=== PATIENT | female | born 1995 | race Caucasian/White ===

== ENCOUNTER 2021-02-17 14:06 | Outpatient (RCR) | payer MEDICAID, SELFPAY | END 2021-05-18 23:59 | disposition home or self-care (01) | LOC: ANHLAB 14:06 | PROVIDERS: Visit Provider Obstetrics & Gynecology | DX: O26.859 Spotting complicating pregnancy, unspecified trimester (principal); Z3A.00 Weeks of gestation of pregnancy not specified | CPT/HCPCS: 36415; 84702; 85461 ==

== ENCOUNTER 2021-02-18 12:39 | Outpatient (CLI) | payer MEDICAID, SELFPAY ==
--- NOTE | ~2021-02-18 | US_ITS ---
EXAMINATION: US OB <= 14 weeks fetus DATE: 02/18/2021 13:11 INDICATION: First trimester spotting. TECHNIQUE: Real-time transabdominal pelvic ultrasound was performed. COMPARISON: None. FINDINGS: The uterus measures 10.4 x 6.6 x 8.1 cm. There is an intrauterine gestational sac. A yolk sac is danitza ntified. The crown rump length measures 2.7 cm, which correlates with an estimated gestational age of 9 weeks and 3 day(s) (+/-) 6 day(s). heart motion is identified measuring 173 beats per minute (bpm) by M-mode Doppler. The right ovary measures 3.2 x 2.7 x 2.5 cm. The left ovary measures 3.7 x 1.9 x 1.8 cm. There is no free fluid in the pelvis. IMPRESSION: 1. Single living intrauterine gestational sac with estimated date of delivery of 09/20/2021. Reviewed, dictated and finalized at location A.
== END 2021-02-18 12:40 | disposition home or self-care (01) ==
PROVIDERS: Visit Provider Obstetrics & Gynecology
DX: O26.851 Spotting complicating pregnancy, first trimester (principal); Z3A.00 Weeks of gestation of pregnancy not specified
CPT/HCPCS: 76801

== ENCOUNTER 2021-05-03 15:01 | Outpatient (CLI) | payer OTHER, SELFPAY ==
--- NOTE | ~2021-05-03 | US_ITS ---
EXAMINATION: US OB /maternal detail DATE: 05/03/2021 16:03 INDICATION: Second trimester anatomic survey TECHNIQUE: Real-time ultrasound of the pelvis was performed. COMPARISON: 02/18/2021 FINDINGS: There is a single living fetus in vertex presentation. The placenta is posterior and 4 cm from the in ternal cervical os. heart rate is 153 beats per minute (bpm). cardiac activity and movement are noted. The amniotic fluid index is subjectively normal. The following anatomy was identified as normal: 4 chamber heart 3 vessel cord cord insertion kidneys urinary bladder stomach spine diaphragm ventricles cisterna magna cerebellum The following biometric data were obtained: Biparietal diameter (BPD): 4.7 cm; head circumference (HC): 17.5 cm; abdominal circumference (AC): 15 .1 cm; femur length (FL): 3.1 cm. These measurements are concordant. Estimated weight is 334 g +/- 50 g, which correlates with the 53rd percentile when 09/20/2021 is used as estimated date of delivery. As single measurements, these parameters are each equal to the following estimated gestational ages w ith ranges of +/- 2 standard deviations: BPD: 20 weeks 2 days +/- 1 weeks 5 days. HC: 20 weeks 1 days +/- 1 weeks 3 days. AC: 20 weeks 3 days +/- 2 weeks 0 days. FL: 19 weeks 6 days +/- 1 weeks 6 days. estimated gestational age based solely on measurements from this exam is 20 weeks 1 days +/- 1 weeks 3 days. IMPRESSION: 1. Single living fetus in vertex presentation. 2. Estimated weight is 334 g +/- 50 g, which correlates with the 53rd percentile when 09/20/2021 is used as estimated date of delivery. Reviewed, dictated and finalized at location A. IMPRESSION: 1. Single living fetus in vertex presentation. 2. Estimated weight is 334 g +/- 50 g, which correlates with the 53rd per centile when 09/20/2021 is used as estimated date of delivery.
== END 2021-05-03 15:02 | disposition home or self-care (01) ==
LOC: ANHIMG 15:09
PROVIDERS: PCP Obstetrics & Gynecology; Visit Provider Nurse Practitioner
DX: Z34.92 Encounter for supervision of normal pregnancy, unspecified, second trimester (principal); Z3A.20 20 weeks gestation of pregnancy
CPT/HCPCS: 76805

== ENCOUNTER 2021-07-20 15:25 | Outpatient (CLI) | payer OTHER, SELFPAY ==
--- NOTE | ~2021-07-20 | US_ITS ---
EXAMINATION: US OB follow up DATE: 07/20/2021 15:53 INDICATION: Gestational size greater than dates. TECHNIQUE: Real-time transabdominal obstetric ultrasound. FINDINGS: Comparison to multiple prior studies sequentially, with oldest reviewed study dated 021. There is a single living fetus in vertex presentation. The placenta is posterior without placenta pr evia. cardiac activity and movement is noted with a heart rate of 173 beats per minute. T he amniotic fluid volume is normal. CARRI measures 14.3 cm. The following biometric data were obtained: BPD: 81mm corresponds to gestational age 32 weeks 5 days. Head circumference: 296mm corresponds to gestational age 32 weeks 5 days. Abdominal circumference: 274mm corresponds to gestational age 31 weeks 3 days. Femur length: 60mm corresponds to gestational age 31 weeks 0 days. Estimated weight: 1792grams +/- 269grams, 37.8%.] IMPRESSION: 1. Single living intrauterine in vertex presentation with an estimated gestational age of 31 weeks 1 days by inititial ultrasound. Appropriate interval growth. 2. Normal placenta. Reviewed, dictated and finalized at location A. ANCE SECRETARY IMPRESSION: 1. Single living intrauterine in vertex presentation with an estimat ed gestational age of 31 weeks 1 days by inititial ultrasound. Appropriate int erval growth. 2. Normal placenta.
== END 2021-07-20 15:26 | disposition home or self-care (01) ==
LOC: ANHIMG 15:27
PROVIDERS: PCP Obstetrics & Gynecology; Visit Provider Obstetrics & Gynecology
DX: O36.63X3 Maternal care for excessive fetal growth, third trimester, fetus 3 (principal); Z3A.32 32 weeks gestation of pregnancy
CPT/HCPCS: 76816

== ENCOUNTER 2021-09-18 18:29 | Inpatient (IN) | payer OTHER, SELFPAY ==
[2021-09-18] VITALS (11 sets, daily range): BP systolic 99–122; BP diastolic 52–74; PULSE 77–92; RESP 16; TEMP 36.6–36.8; BMI 40.7
[2021-09-18] MEDS: DINOPROSTONE 10 MG VAG INSERT VAGINAL (19:28)
[2021-09-18 19:54] LABS: Basophils Percent Auto 0.2 % (0.2-1.2); Eosinophils Absolute Auto 0.1 K/mm3 (0-0.3); Eosinophils Percent Auto 0.7 % (0-4.4); Hematocrit 33.7 % (37.0-47.0); Hemoglobin 11.4 g/dL (12.0-15.0); Immature Granulocyte Absolute 0.09 K/mm3 (0.00-0.031); Immature Granulocyte Percent A 0.7 % (0-0.5); Lymphocytes Absolute Auto 1.28 K/mm3 (0.9-3.2); Lymphocytes Percent Auto 10.2 % (18.3-44.2); Mean Corpuscular HGB Conc 33.8 g/dl (32-36); Mean Corpuscular Hemoglobin 31.1 pg (26-34); Mean Corpuscular Volume 91.8 fl (80-100); Mean Platelet Volume 10.3 fl (7.4-10.4); Monocytes Absolute Auto 0.8 K/mm3 (0.1-0.6); Monocytes Percent Auto 6.6 % (2.6-8.5); Neutrophils Absolute Auto 10.2 K/mm3 (1.3-6.7); Neutrophils Percent Auto 81.6 % (45.5-73.1); Platelet Count Result 216 k/mm3 (150-375); Red Blood Count 3.67 M/mm3 (4.2-5.4); Red Cell Distribution Width 14.7 % (11.5-14.5); White Blood Count 12.5 K/mm3 (4.5-10.0)
[2021-09-18 20:13] LABS: Amphetamine Screen Urine Negative (Negative); Barbiturate Screen Urine Negative (Negative); Benzodiazepines Screen Urine Negative (Negative); Cannabinoid Screen Urine Positive (Negative); Cocaine Screen Urine Negative (Negative); Methadone Screen Urine Negative (Negative); Opiate Screen Urine Negative (Negative); Phencyclidine Screen Urine Negative (Negative)
[2021-09-19] VITALS (113 sets, daily range): BP systolic 88–128; BP diastolic 50–90; PULSE 72–143; RESP 16; TEMP 36.3–37.2; O2SAT 98–100
[2021-09-19] MEDS: ACETAMINOPHEN 500 MG TABLET 1000 MG PO (00:38)
[2021-09-19] MEDS: DINOPROSTONE 10 MG VAG INSERT VAGINAL (04:30)
[2021-09-19 07:21] LABS: Rapid Plasma Reagin Non-Reactive (NonReactive)
--- NOTE | 2021-09-19 10:56 | WPDOBADMIT ---
Obstetrics - Admit Note Admission Note: record reviewed. No pertinent additions to the history and/or any subsequent changes in the physical findings that are not consistent with the expected course of the were found. Additions to the history and/or subsequent changes in the physical findings follow. Here for MIL at 40 2/7 wks. Had cervadil last pm but patient pulled it shortly after placed and did not tell RN until 430am. Replaced cervadil. Cervix now FT/50/-2 posterior. Continue for full 12 hours of cervadil followed by pitocin. FHTs reactive.
[2021-09-19] MEDS: OXYTOCIN 30 UNITS/NS 500 ML 30 UNITS/500 ML BAG 6 UNITS IV CONT (17:04)
[2021-09-19] MEDS: LACTATED RINGERS 1,000 ML 125 ML IV CONT ×2 (17:04→23:54)
--- NOTE | 2021-09-19 17:10 | PM.OBPNLAB ---
Pain Control Date/time seen: 09/19/21 17:10 Pain control: tolerating well Pelvic Exam Comments: 1-2//-2 midposition; AROM clear fluid Status status: Category l Assessment and Plan Assessment: induction ongoing Plan: continuous present management
[2021-09-19] MEDS: fentaNYL CITRATE INJ (*CRX) 100 MCG/2 ML VIAL 50 MCG IV PUSH ×2 (19:06→21:41)
--- NOTE | 2021-09-19 23:51 | WPDANESEPPF ---
Anes - Initial Pre Proc Eval Procedure: labor epidural Date/Time: 09/19/21 23:51 Surgeon: Chiquita Avila MD Pre Op Diagnosis: labor pain Pre Op Diagnosis: IOL Patient Data Age: 26 Gender: F Height: 1.7 m Weight: 117.93 kg Last Vital Signs Temp 36.4 C 09/19/21 20:30 Pulse 94 09/19/21 23:01 Resp 16 09/19/21 04:30 BP 128/73 09/19/21 23:01 Pulse Ox 100 09/19/21 23:24 Allergies Allergy/AdvReac Type Severity Reaction Status Date / Time No Known Allergies Allergy Verified 08/20/21 12:38 Home Medications Medication Instructions Recorded Confirmed Type ferrous sulfate [Slow Fe] 47.5 mg PO DAILY 08/20/21 08/20/21 History vit no.[id number] 1 tablet DAILY 08/20/21 08/20/21 History [Classic ] pseudoephedrine HCl [Sudafed] 1 mg PRN PRN 08/20/21 08/20/21 History Laboratory Tests 09/18/21 19:22 RPR Non-reactive (NonReactive) Patient hx anesthesia problems: none Family hx anesthesia problems: none Results Review: All pre-operative results and documents have been reviewed as part of the pre-operative evaluation. [facility] Family History Family History (Updated 08/20/21 @ 12:38 by Jasmin Bautista RN) Father Acute myocardial infarction Social History Social History Smoking status: Never smoker Substance use: current Other substance usage details: on occa Last use: unsure Spiritual care concerns: No Anes - Eval Final PreProcedure Day of Procedure 09/19/21 23:51 Patient weight: morbidly obese ASA classification: III Anesthesia type and monitoring: regional epidural Results Review: All pre-operative results and documents have been reviewed as part of the pre-operative evaluation. Informed Consent: The patient's anesthetic plan and its attendant risks and benefits were discussed with the patient/family/POA. Questions were solicited and answers provided to the satisfaction of the patient/family/POA.
[2021-09-20] VITALS (352 sets, daily range): BP systolic 63–139; BP diastolic 29–101; PULSE 66–196; RESP 18; TEMP 36.2–37.7; O2SAT 84–100
[2021-09-20] MEDS: LACTATED RINGERS 1,000 ML 125 ML IV CONT ×2 (01:22→09:00)
[2021-09-20] MEDS: AMPICILLIN 2 GM/NS 100 ML 2 GM/100 ML BAG IVPB (10:29)
[2021-09-20] MEDS: ACETAMINOPHEN 500 MG TABLET 1000 MG PO (10:29)
[2021-09-20] MEDS: SODIUM CHLORIDE 0.9% IV 300 ML 600 ML I-UTERINE (14:00)
[2021-09-20] MEDS: AMPICILLIN 1 GM/NS 50 ML 1 GM/50 ML BAG IVPB (15:13)
[2021-09-20] MEDS: ONDANSETRON INJ 4 MG/2 ML VIAL IV PUSH (16:35)
--- NOTE | 2021-09-20 16:40 | P.PNOB_ITS ---
Pain Control Date/time seen: 09/20/21 16:40 Pain control: epidural Pelvic Exam Comments: -/-2 with 3 cm caput [place] cervix stretchy to 7 Status status: Category ll ( tachycardia) Assessment and Plan Comments: 2 IV restarts due to coming out so Pitocin stopped and restarted several times contractions not adequate low grade maternal temp to 9.8 but tachycardia to 160-170's started IV tylenol and amp and gent
[2021-09-20] MEDS: GENTAMICIN 80MG/SOD CHL 50 ML 80 MG/50 ML BAG 100 MG IVPB (17:13)
--- NOTE | 2021-09-20 22:46 | PM.OBPRVD ---
OB - Delivery Note Procedure Delivery date: 09/20/21 Procedure: Intrapartal Events: Chorioamnionitis Induction method: AROM, Per Pitocin Protocol and Per Cervidil Protocol Delivery monitor: External FHT and Internal Uterine Route of delivery: Laceration Description: Perineal - 2nd Degree Delivery repair: vicryl (3-0) Specimen: Yes (placenta) Quantitative Blood Loss (ml): 150 Anesthesia type: Epidural Disposition: floor Baby Date of : 09/20/21 Weeks of gestation at delivery: 40 Infant gender: Male presentation: vertex position: Right Occiput Anterior Placenta delivery description: Spontaneous Cord Vessel Description: 3 Vessels and Nuchal Cord score one minute: 9 score five minutes: 9
--- NOTE | 2021-09-20 22:47 | PM.OBDSVD ---
DS: Admitting Diagnosis Discharge Date 09/22/21 Admitting Diagnosis IUP 40 2/7 wks for MIL DS: Discharge Diagnosis Discharge Diagnosis (1) (normal spontaneous vaginal delivery): Code(s): O80 - Encounter for full-term uncomplicated delivery Status: Acute (2) Chorioamnionitis: Code(s): O41.1290 - Chorioamnionitis, unspecified trimester, not applicable or unspecified Status: Acute OB - DS: Summary OB Procedures : Ultrasound OB Procedures Intrapartum: Spontaneous Vag Delivery OB Procedures: : None Peripartum Data Infant Delivery Method: Natural Vaginal Laceration Description: Perineal - 2nd Degree complications: none Status at Discharge Functional status at discharge: independent ambulation Overall status at discharge: patient is progressing back to baseline Time Spent with Patient Time attestation: Total time spent providing and/or coordinating discharge services: Discharge Plan Discharge Attending physician on discharge: Chiquita Avila Discharging Clinician: Chiquita Avila Anticipated Discharge Date/Time: 09/22/21 22:48 Patient Disposition: Home, Self-Care Activity: may shower and pelvic rest Diet: regular Patient Instructions: Antibiotic Form Stand Alone Forms: General Discharge Information Follow-up/Referrals: Chiquita Avila MD [Physician] - 6 Weeks Discharge Medications: New norethindrone (contraceptive) 0.35 mg tablet 0.35 mg PO DAILY Qty: 84 RF: 3 Continued Classic 28 mg iron- 800 mcg Tablet 1 tablet DAILY RF: 0 Discontinued Slow Fe 47.5 mg iron Tablet Extended Release 47.5 mg PO DAILY RF: 0 pseudoephedrine HCl [Sudafed] 30 mg Tablet 1 mg PRN PRN (Reason: Congestion) RF: 0 Date of admission: 09/18/21 18:29 Primary Care Provider: PHYSICIAN,CAMPUS COORDINATOR Admitting Provider: Chiquita Avila Attending physician on admission: Chiquita Avila Condition: Stable
[2021-09-21] VITALS (10 sets, daily range): BP systolic 92–140; BP diastolic 54–89; PULSE 80–108; RESP 16–18; TEMP 36.2–37.4; O2SAT 98–100
[2021-09-21] MEDS: WITCH HAZEL 40 PADS 1 PAD TOPICAL ×2 (00:45→20:34)
[2021-09-21] MEDS: IBUPROFEN 600 MG TABLET PO ×3 (00:45→20:33)
[2021-09-21] MEDS: BENZOCAINE 20% AER SPR (*SP) 56 GM CAN 1 SPRAY TOPICAL ×2 (00:45→20:34)
[2021-09-21 05:01] LABS: Hematocrit 30.6 % (37.0-47.0)
--- NOTE | 2021-09-21 07:39 | PC.NURSE ---
0730 - Introductions were made and mother led the discussion of her desires to feeding her baby. Reviewed handwashing to prevent infection before and after taking care of her baby. Discussed and mother visualized early feeding cues with infant and placed skin to skin, then reviewed feeding baby when infant is ready or every 2-3 hours. Reviewed positioning/alignment with the use of the mom and baby guide. Encouraged mother with to the left breast in football position using nipple to nose with asymmetrical 140-degree latch reviewed with visual handout. She states she has had some nipple discomfort after latching independently. Reviewed there is to be no pain with , how to detach from the breast, visuals to watch for to confirm effective . Reviewed effective latching with resources visual handout/mom and baby guide. Process was interrupted by mother's provider and primary RN to take to get circumcised.
--- NOTE | 2021-09-21 07:46 | PM.OBPNVD ---
OB - PN: Subj Subjective Date/time seen: 09/21/21 07:46 Patient comments: no complaints and pain well controlled baby status: doing well OB - PN: Obj Data Labs CBC & Chem 7: 09/21/21 03:40 Labs: Laboratory Results - last 24 hr 09/21/21 03:40 Hgb 10.0 L Hct 30.6 L OB - PN A/P Plan day: 1 Plan: routine care Time Spent With Patient Time: Total time spent is greater than 50% in coordination of care (as documented) at patient's floor/unit and/or counseling patient: Exam : Bimanual exam- vagina & uterus: other (Uterus firm, nt @U)
--- NOTE | 2021-09-21 08:05 | WPDANLDPN2 ---
Anes-Prog Note L&D Date/Time: 09/21/21 08:05 Comfortable throughout: labor and delivery Neuraxial method: epidural Epidural/Spinal procedure site: clean & non-tender Neuro status: Neuro function grossly intact. Cardiovascular status: normal Respiratory status: normal Airway patency: baseline Mental status: baseline Post-Op hydration status: normal Vital Signs: Last Vital Signs Temp 36.7 C 09/21/21 02:46 Pulse 96 09/21/21 02:46 Resp 16 09/21/21 02:46 BP 111/68 09/21/21 02:46 Pulse Ox 98 09/21/21 02:46 Pain score (VAS): 08/15 I/O: Intake & Output 09/20/21 09/21/21 09/21/21 23:59 07:59 15:59 Intake Total 150 Balance 150 Post-procedural complaints: none Patient feedback: Patient satisfied with anesthetic care.
[2021-09-21] MEDS: MULTIVIT/MIN/PREN/FOL AC/IRON TABLET 1 TAB PO (08:32)
[2021-09-21] MEDS: DOCUSATE SODIUM 100 MG CAPSULE PO (08:32)
--- NOTE | 2021-09-22 07:44 | PM.OBPNVD ---
OB - PN: Subj Subjective Date/time seen: 09/22/21 07:44 Patient comments: no complaints and pain well controlled baby status: doing well OB - PN: Obj Data Labs CBC & Chem 7: 09/21/21 03:40 OB - PN A/P Plan day: 2 Plan: routine care, discharge home, follow up 6 weeks and other (micronor for bc) Time Spent With Patient Time: Total time spent is greater than 50% in coordination of care (as documented) at patient's floor/unit and/or counseling patient: Exam : Bimanual exam- vagina & uterus: other (Uterus firm, nt @U)
[2021-09-22 07:45] VITALS: BP 123/48; PULSE 74; RESP 18; TEMP 36.7; O2SAT 100
[2021-09-22 08:00] VITALS: PULSE 74; RESP 18; O2SAT 100
[2021-09-22] MEDS: IBUPROFEN 600 MG TABLET PO (08:42)
[2021-09-22] MEDS: DOCUSATE SODIUM 100 MG CAPSULE PO ×2 (08:42→08:46)
[2021-09-22] MEDS: MULTIVIT/MIN/PREN/FOL AC/IRON TABLET 1 TAB PO ×2 (08:42→08:46)
--- NOTE | 2021-09-22 09:59 | PCCCNOTE ---
Care Coordination Consult: Met with pt. and NATASHA Brizuela today. This is their first child. They have all necessary supplies at home for baby including a car seat, crib, diapers, bottles, and clothing. They were provided resources. Pt. reports recreational marijuana use sporadically. Baby tested negative for all substances. Pt. is going to breastfeed with supplemental formula feeding, pt. was provided information from RN about and using marijuana. 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 Pt. denies any reliance on marijuana or other substance use. Pt. reports she is discharging today. Denies any other case management needs.
--- NOTE | 2021-09-22 14:17 | PC.NURSE ---
1000-Patient viewed the discharge video Mother & Baby Care, The First Two Weeks . Patient was given the opportunity and encouraged to ask questions. Patient verbalized understanding of information shared and has been given the mother/baby guide for home reference.
[2021-09-23 10:56] VITALS: BP 120/70; PULSE 85; RESP 20; TEMP 36.8; O2SAT 99
== END 2021-09-22 13:40 | disposition home or self-care (01) | DRG 560 ==
LOC: ANHLDR 09-20 22:49 → ANHOB2 09-21 01:47
PROVIDERS: Admitting Provider Obstetrics & Gynecology Gynecology; Visit Provider Obstetrics & Gynecology Gynecology
DX: O42.92 Full-term premature rupture of membranes, unspecified as to length of time between rupture and onset of labor (principal); Z37.0 Single live birth; Z3A.40 40 weeks gestation of pregnancy; O69.81X0 Labor and delivery complicated by cord around neck, without compression, not applicable or unspecified; O70.1 Second degree perineal laceration during delivery; O36.8330 Maternal care for abnormalities of the fetal heart rate or rhythm, third trimester, not applicable or unspecified; O41.1230 Chorioamnionitis, third trimester, not applicable or unspecified
CPT/HCPCS: 36415; 80307; 85014; 85018; 85025; 86592; 86850; 86900; 86901; 88307; A9270; J0131; J0290; J1580; J2405; J2590; J2795; J3010; J7030; J7120

== ENCOUNTER 2023-08-10 15:32 | Outpatient (CLI) | payer OTHER, SELFPAY ==
--- NOTE | ~2023-08-10 | US_ITS ---
EXAMINATION: US OB follow up DATE: 08/10/2023 16:32 INDICATION: Uncertain dates. TECHNIQUE: Real-time ultrasound of the pelvis was performed. COMPARISON: None. FINDINGS: There is a single living fetus in transverse lie. The placenta is anterior. heart rate is 157 beats per minute (bpm). The amniotic fluid volume is subjectively normal. The cervical length is 4.9 cm on transabdominal images, which is normal. The following biometric data were obtained: Biparietal diameter (BPD): 3.6 cm; head circumference (HC): 12.6 cm; abdominal circumference (AC): 11 .4 cm; femur length (FL): 2.3 cm. These measurements are concordant. Estimated weight is 175 g +/- 26 g. As single measurements, these parameters are each equal to the following estimated gestational ages: BPD: 17 weeks 0 days. HC: 16 weeks 3 days. AC: 17 weeks 2 days. FL: 16 weeks 5 days. estimated gestational age based solely on measurements from this exam is 16 weeks 5 days +/- 1 weeks 1 days. IMPRESSION: 1. Single living fetus in transverse lie. 2. Estimated date of delivery of 01/20/2024. Reviewed, dictated and finalized at location E. LECTURER
== END 2023-08-10 15:33 | disposition home or self-care (01) ==
LOC: ANHIMG 15:33
PROVIDERS: Visit Provider Advanced Practice Midwife
DX: Z36.87 Encounter for antenatal screening for uncertain dates (principal); Z3A.16 16 weeks gestation of pregnancy
CPT/HCPCS: 76816

== ENCOUNTER 2023-09-17 09:30 | Outpatient (CLI) | payer OTHER, SELFPAY ==
--- NOTE | ~2023-09-17 | US_ITS ---
EXAMINATION: US OB /maternal detail DATE: 09/17/2023 10:46 INDICATION: anatomic survey. TECHNIQUE: Real-time ultrasound of the pelvis was performed. COMPARISON: Ultrasound 08/10/2023 FINDINGS: There is a single living fetus in breech presentation. The placenta is anterior. heart rate is 153 beats per minute (bpm). The amniotic fluid volume is subjectively normal. The following biometric data were obtained: Biparietal diameter (BPD): 4.9 cm; head circumference (HC): 18.7 cm; abdominal circumference (AC): 16 .2 cm; femur length (FL): 3.8 cm. These measurements are concordant. Estimated weight is 432 g +/- 65 g, which correlates with the 18th percentile when 01/20/24 is u sed as estimated date of delivery. As single measurements, these parameters are each equal to the following estimated gestational ages: BPD: 20 weeks 6 days. HC: 21 weeks 0 days. AC: 21 weeks 2 days. FL: 22 weeks 0 days. estimated gestational age based solely on measurements from this exam is 21 weeks 2 days +/- 1 weeks 3 days. The posterior head is not well visualized. The cerebral ventricles, and visualized portions of the spine are normal. The heart is normal. The diaphragm, stomach, kidneys, and bladder are normal. T here are two umbilical arteries to yield a 3-vessel cord. The cord insertion is normal. IMPRESSION: 1. Single living fetus in breech presentation. 2. Estimated weight is 432 g +/- 65 g, which correlates with the 18th percentile when 01/20/24 is used as estimated date of delivery. 3. Posterior head not well visualized. Otherwise normal anatomic survey. Reviewed, dictated and finalized at location A. CLEANING MACHINE OPERATOR IMPRESSION: 1. Single living fetus in breech presentation. 2. Estimated weight is 432 g +/- 65 g, which correlates with the 18th pe rcentile when 01/20/24 is used as estimated date of delivery. 3. Posterior head not well visualized. Otherwise normal anatomic crowell rvey.
== END 2023-09-17 09:31 | disposition home or self-care (01) ==
PROVIDERS: Visit Provider Advanced Practice Midwife
DX: Z36.9 Encounter for antenatal screening, unspecified (principal); Z3A.21 21 weeks gestation of pregnancy
CPT/HCPCS: 76805

== ENCOUNTER 2023-10-09 15:55 | Outpatient (CLI) | payer OTHER, SELFPAY ==
--- NOTE | ~2023-10-09 | US_ITS ---
EXAMINATION: US OB follow up DATE: 10/09/2023 16:51 INDICATION: Incomplete anatomic survey during second trimester TECHNIQUE: Real-time ultrasound of the pelvis was performed. The interpreting radiologist was not pre sent for the study. COMPARISON: 09/17/2023 FINDINGS: There is a single living fetus in breech presentation. The placenta is anterior/fundal. Fet al cardiac activity and movement are noted. heart rate is 144 beats per minute (bpm). The amniotic fluid index is subjectively normal. The intracranial anatomy appears normal. The following biometric data were obtained: Biparietal diameter (BPD): 5.8 cm; head circumference (HC): 22.8 cm; abdominal circumference (AC): 21 .2 cm; femur length (FL): 4.7 cm. These measurements are concordant. Estimated weight is 824 g +/- 123 g, which correlates with the 52nd percentile when 01/20/2024 i s used as estimated date of delivery. As single measurements, these parameters are each equal to the following estimated gestational ages w ith ranges of +/- 2 standard deviations: BPD: 23 weeks 5 days +/- 1 weeks 3 days. HC: 24 weeks 6 days +/- 2 weeks 0 days. AC: 25 weeks 5 days +/- 2 weeks 1 days. FL: 25 weeks 6 days +/- 2 weeks 1 days. estimated gestational age based solely on measurements from this exam is 25 weeks 0 days +/- 1 weeks 5 days. IMPRESSION: 1. Single living fetus in breech presentation. 2. Estimated weight is 824 g +/- 123 g, which correlates with the 52nd percentile when is used as estimated date of delivery. 3. Normal-appearing intracranial anatomy. Reviewed, dictated and finalized at location B. ING MACHINE ASSEMBLER IMPRESSION: 1. Single living fetus in breech presentation. 2. Estimated weight is 824 g +/- 123 g, which correlates with the 52nd pe rcentile when 01/20/2024 is used as estimated date of delivery. 3. Normal-appearing intracranial anatomy.
== END 2023-10-09 15:56 | disposition home or self-care (01) ==
PROVIDERS: Visit Provider Obstetrics & Gynecology Gynecology
DX: Z36.9 Encounter for antenatal screening, unspecified (principal)
CPT/HCPCS: 76816

== ENCOUNTER 2023-11-08 18:08 | Observation (INO) | payer OTHER, SELFPAY ==
[2023-11-08] VITALS (12 sets, daily range): BP systolic 112–115; BP diastolic 62–63; PULSE 72–80; TEMP 36.9; O2SAT 100; BMI 46.9
--- NOTE | 2023-11-08 18:08 | PC.NURSE ---
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
--- NOTE | 2023-11-08 19:11 | PC.NURSE ---
Called Dr. Avila to update on pt, cramping, vitals, tracing, and no vaginal bleeding. Orders received to discharge pt with instructions to use ice and Tylenol, when to return to the unit, and keep next scheduled appointment.
--- NOTE | 2023-11-08 19:51 | OBADM ---
This patient, Jennifer Hawley, admitted to the OB room OB Post 117 for observation. Patient/family oriented to hospital policies and general routines including ID bracelet, bed and alarms, visiting hours, pain management, procedures, bathroom and other care routines, personal items, smoking policy, room service/diet, and visiting hours. Patient/Family are encouraged to report perceived risks to care and to ask questions if they do not understand what they are told or what they should do.
--- NOTE | 2023-11-08 20:00 | PC.NURSE ---
Pt discharged with instructions to use ice and take Tylenol, when to return to the unit, and to keep next scheduled appointment.
--- NOTE | 2023-11-09 11:53 | PM.OBTRLD ---
OB - Triage/Final Diagnosis Visit Information Reason for evaluation: other ( abdominal cramping) Comments/Additional reasons for admission: I have assessed the risk for this patient, Jennifer Baez Rashidlaurenradhika, and determined that she would benefit from observation care. Evaluation Vital signs: Vital Signs - 24 hr 11/08/23 18:34 11/08/23 18:37 11/08/23 18:42 Temperature Pulse Rate 76 Blood Pressure 115/62 Blood Pressure [Left Arm] Pulse Oximetry 100 100 Oxygen Delivery 11/08/23 18:47 11/08/23 18:52 11/08/23 18:57 Temperature Pulse Rate Blood Pressure Blood Pressure [Left Arm] Pulse Oximetry 100 100 100 Oxygen Delivery 11/08/23 19:00 11/08/23 19:02 11/08/23 19:07 Temperature Pulse Rate 72 Blood Pressure 112/63 Blood Pressure [Left Arm] Pulse Oximetry 100 100 Oxygen Delivery 11/08/23 19:12 11/08/23 19:08 11/08/23 19:50 Temperature 98.4 F Pulse Rate Blood Pressure Blood Pressure [Left Arm] Pulse Oximetry 100 Oxygen Delivery Room Air 11/08/23 19:14 11/08/23 19:08 Temperature 98.4 F Pulse Rate 80 Blood Pressure Blood Pressure [Left Arm] 115/62 Pulse Oximetry Oxygen Delivery
== END 2023-11-08 20:00 | disposition home or self-care (01) ==
PROVIDERS: Admitting Provider Obstetrics & Gynecology Gynecology; Visit Provider Obstetrics & Gynecology Gynecology
DX: O26.899 Other specified pregnancy related conditions, unspecified trimester (principal); R10.9 Unspecified abdominal pain; Z3A.00 Weeks of gestation of pregnancy not specified
CPT/HCPCS: 59025; G0378; G0379

== ENCOUNTER 2023-12-10 13:36 | Outpatient (CLI) | payer OTHER, SELFPAY ==
--- NOTE | ~2023-12-10 | US_ITS ---
EXAMINATION: US OB follow up DATE: 12/10/2023 15:02 INDICATION: Size greater than dates. Third trimester. TECHNIQUE: Real-time ultrasound of the pelvis was performed. COMPARISON: Ultrasound 10/09/2023 FINDINGS: There is a single living fetus in vertex presentation. The placenta is anterior. heart rate is 125 beats per minute (bpm). The amniotic fluid index is 13.0 cm, which is normal. The following biometric data were obtained: Biparietal diameter (BPD): 8.5 cm; head circumference (HC): 30.5 cm; abdominal circumference (AC): 29 .3 cm; femur length (FL): 6.7 cm. These measurements are concordant. Estimated weight is 2285 g +/- 343 g, which correlates with the 34th percentile when 01/20/24 is used as estimated date of delivery. As single measurements, these parameters are each equal to the following estimated gestational ages: BPD: 34 weeks 1 days. HC: 33 weeks 6 days. AC: 33 weeks 2 days. FL: 34 weeks 4 days. estimated gestational age based solely on measurements from this exam is 34 weeks 0 days +/- 2 weeks 3 days. IMPRESSION: 1. Single living fetus in vertex presentation. 2. Estimated weight is 2285 g +/- 343 g, which correlates with the 34th percentile when 4 is used as estimated date of delivery. Reviewed, dictated and finalized at location A. IMPRESSION: 1. Single living fetus in vertex presentation. 2. Estimated weight is 2285 g +/- 343 g, which correlates with the 34th percentile when 01/20/24 is used as estimated date of delivery.
== END 2023-12-10 13:37 | disposition home or self-care (01) ==
LOC: ANHIMG 13:36
PROVIDERS: Visit Provider Advanced Practice Midwife
DX: O36.63X0 Maternal care for excessive fetal growth, third trimester, not applicable or unspecified (principal); Z3A.34 34 weeks gestation of pregnancy
CPT/HCPCS: 76816

== ENCOUNTER 2024-01-08 10:28 | Outpatient (CLI) | payer OTHER, SELFPAY ==
[2024-01-08] MEDS: ACETAMINOPHEN 500 MG TABLET 1000 MG PO (10:50)
[2024-01-08 11:01] VITALS: BP 109/66; PULSE 85
[2024-01-08 11:10] LABS: Basophils Percent Auto 0.2 % (0.2-1.2); Eosinophils Absolute Auto 0.1 K/mm3 (0-0.3); Eosinophils Percent Auto 0.7 % (0-4.4); Hematocrit 34.1 % (37.0-47.0); Hemoglobin 11.1 g/dL (12.0-15.0); Immature Granulocyte Absolute 0.05 K/mm3 (0.00-0.031); Immature Granulocyte Percent A 0.5 % (0-0.5); Lymphocytes Absolute Auto 1.51 K/mm3 (0.9-3.2); Lymphocytes Percent Auto 15.5 % (18.3-44.2); Mean Corpuscular HGB Conc 32.6 g/dl (32-36); Mean Corpuscular Hemoglobin 28.7 pg (26-34); Mean Corpuscular Volume 88.1 fl (80-100); Mean Platelet Volume 10.5 fl (7.4-10.4); Monocytes Absolute Auto 0.4 K/mm3 (0.1-0.6); Monocytes Percent Auto 4.5 % (2.6-8.5); Neutrophils Absolute Auto 7.7 K/mm3 (1.3-6.7); Neutrophils Percent Auto 78.6 % (45.5-73.1); Platelet Count Result 182 k/mm3 (150-375); Red Blood Count 3.87 M/mm3 (4.2-5.4); Red Cell Distribution Width 17.7 % (11.5-14.5); White Blood Count 9.8 K/mm3 (4.5-10.0)
[2024-01-08 11:15] VITALS: BP 101/55; PULSE 79
[2024-01-08 11:17] LABS: Appearance Urine Cloudy (Clear); Bacteria Urine Rare /hpf; Bilirubin Urine Negative (Negative); Blood Urine Negative (Negative); Color Urine Yellow (Yellow); Glucose Urine UA Negative (Negative); Ketones Urine Negative (Negative); Leukocyte Esterase Ur 1+ LEU/UL (Negative); Nitrate Urine Negative (Negative); Non Pathogenic Casts 0-2; Protein Urine Negative (Negative); RBC Urine 0-2 /hpf (0-2); Specific Grav Ur 1.012 (1.001-1.035); Squamous Epithelial Cell Urine Many /hpf (Few); Urobilinogen Urine 0.2 mg/dL (<2.0)
[2024-01-08 11:32] LABS: Alanine Aminotransferase 13 U/L (6-35); Albumin Level 3.4 g/dL (3.5-5.1); Alkaline Phosphatase 187 U/L (38-126); Anion Gap 5 mmol/L (4-12); Aspartate Amino Transferase 18 U/L (14-36); Bilirubin,Total 0.3 mg/dL (0.2-1.3); Blood Urea Nitrogen 3 mg/dL (7-17); Calcium 8.6 mg/dL (8.4-10.2); Carbon Dioxide 20 mmol/L (22-30); Chloride 111 mmol/L (98-107); Estimated Glomerular Filt Rate > 60; Glucose 91 mg/dL (65-110); Potassium 3.8 mmol/L (3.4-5.0); Sodium 136 mmol/L (137-145); Uric Acid 4.5 mg/dL (2.5-7.5)
[2024-01-08 11:46] LABS: Total Protein Urine Random 6 mg/dL
[2024-01-08 11:58] LABS: Add Urine Microscopic? YES
[2024-01-08 12:20] LABS: Creatinine Urine 91.7 mg/dL; Ur Ttl Prot Creatinine Ratio 0.07 mg/mg (0-0.20)
== END 2024-01-08 12:20 | disposition home or self-care (01) ==
LOC: ANHOBOP 10:31 → ANHOBPP 10:34
PROVIDERS: Advanced Practice Midwife; Visit Provider Obstetrics & Gynecology Gynecology
DX: O13.9 Gestational [pregnancy-induced] hypertension without significant proteinuria, unspecified trimester (principal); Z3A.00 Weeks of gestation of pregnancy not specified
CPT/HCPCS: 36415; 59025; 80053; 81001; 82570; 84156; 84550; 85025; 87086; 99199; A9270

== ENCOUNTER 2024-01-26 04:56 | Inpatient (IN) | payer OTHER, SELFPAY ==
[2024-01-26] VITALS (227 sets, daily range): BP systolic 78–139; BP diastolic 42–112; PULSE 72–146; TEMP 36.1–36.6; O2SAT 96–100; BMI 46.6
[2024-01-26 05:39] LABS: Basophils Percent Auto 0.3 % (0.2-1.2); Eosinophils Absolute Auto 0.1 K/mm3 (0-0.3); Eosinophils Percent Auto 1.1 % (0-4.4); Hematocrit 34.7 % (37.0-47.0); Hemoglobin 11.1 g/dL (12.0-15.0); Immature Granulocyte Absolute 0.09 K/mm3 (0.00-0.031); Immature Granulocyte Percent A 0.8 % (0-0.5); Lymphocytes Percent Auto 16.4 % (18.3-44.2); Mean Corpuscular Hemoglobin 28.5 pg (26-34); Mean Corpuscular Volume 89.2 fl (80-100); Mean Platelet Volume 10.3 fl (7.4-10.4); Monocytes Absolute Auto 0.6 K/mm3 (0.1-0.6); Monocytes Percent Auto 5.5 % (2.6-8.5); Neutrophils Absolute Auto 8.8 K/mm3 (1.3-6.7); Neutrophils Percent Auto 75.9 % (45.5-73.1); Platelet Count Result 216 k/mm3 (150-375); Red Blood Count 3.89 M/mm3 (4.2-5.4); Red Cell Distribution Width 17.2 % (11.5-14.5); White Blood Count 11.6 K/mm3 (4.5-10.0)
[2024-01-26] MEDS: LACTATED RINGERS 1,000 ML 125 ML IV CONT ×4 (05:39→17:52)
[2024-01-26] MEDS: AMPICILLIN 2 GM/NS 100 ML 2 GM/100 ML BAG IVPB (05:40)
[2024-01-26] MEDS: OXYTOCIN 30 UNITS/NS 500 ML 30 UNITS/500 ML BAG IV CONT (05:59)
[2024-01-26 06:28] LABS: HIV 1/2 Ab P24 Ag Result Negative (Negative)
--- NOTE | 2024-01-26 09:06 | WPDOBADMIT ---
Obstetrics - Admit Note Admission Note: record reviewed. No pertinent additions to the history and/or any subsequent changes in the physical findings that are not consistent with the expected course of the were found. Additions to the history and/or subsequent changes in the physical findings follow. Here at 40 6/7 wks for MIL. Cervix 2/50/-2 AROM with clear fluid. Had prolonged contraction x 1 with decel. Recovered well. Otherwise Cat. I tracing. Continue MIL with pitocin. Plans epidural.
[2024-01-26] MEDS: AMPICILLIN 1 GM/NS 50 ML 1 GM/50 ML BAG IVPB ×4 (09:46→22:23)
--- NOTE | 2024-01-26 11:30 | WPDANESEPPF ---
Anes - Initial Pre Proc Eval Procedure: labor epidural Date/Time: 01/26/24 11:30 Surgeon: Chiquita Avila MD Pre Op Diagnosis: labor pain Pre Op Diagnosis: IOL Patient Data Age: 28 Gender: F Height: 1.7 m Weight: 135 kg Last Vital Signs Pulse 85 01/26/24 11:27 BP 128/66 01/26/24 11:27 Pulse Ox 97 01/26/24 11:27 O2 Del Method Room Air 01/26/24 05:45 Allergies Allergy/AdvReac Type Severity Reaction Status Date / Time No Known Allergies Allergy Verified 01/26/24 06:10 Home Medications Medication Instructions Recorded Confirmed Type vits no.126-ferrous fum 1 tablet PO DAILY 08/20/21 12/21/23 History 28 mg iron-folic acid 800 mcg tablet (Classic ) ergocalciferol (vitamin D2) 1,250 1,250 mcg PO WEEKLY 12/21/23 12/21/23 History mcg (50,000 unit) capsule ferrous sulfate 325 mg (65 mg 350 mg PO DAILY 01/26/24 01/26/24 History iron) tablet Laboratory Tests 01/26/24 05:29 WBC 11.6 H K/mm3 (4.5-10.0) RBC 3.89 L M/mm3 (4.2-5.4) Hgb 11.1 L g/dL (12.0-15.0) Hct 34.7 L % (37.0-47.0) MCV 89.2 fl (80-100) MCH 28.5 pg (26-34) MCHC 32.0 g/dl (32-36) RDW 17.2 H % (11.5-14.5) Plt Count 216 k/mm3 (150-375) MPV 10.3 fl (7.4-10.4) Immature Gran % (Auto) 0.8 H % (0-0.5) Neut % (Auto) 75.9 H % (45.5-73.1) Lymph % (Auto) 16.4 L % (18.3-44.2) [place] % (Auto) 5.5 % (2.6-8.5) Eos % (Auto) 1.1 % (0-4.4) Baso % (Auto) 0.3 % (0.2-1.2) Lymph # (Auto) 1.90 K/mm3 (0.9-3.2) [place] # (Auto) 0.6 K/mm3 (0.1-0.6) Eos # (Auto) 0.1 K/mm3 (0-0.3) Baso # (Auto) 0.0 K/mm3 (0.0-0.1) Abs Immat Gran (auto) 0.09 H K/mm3 (0.00-0.031) Absolute Neuts (auto) 8.8 H K/mm3 (1.3-6.7) Absolute Nucleated RBC 0.000 K/mm3 (0.0-0.012) Nucleated RBC % 0.0 % (0.0-0.2) RPR Pending HIV 1&2 Ab/P24 Ag 4thGn Negative (Negative) Blood Type A Positive Antibody Screen Negative Patient hx anesthesia problems: none Family hx anesthesia problems: none Results Review: All pre-operative results and documents have been reviewed as part of the pre-operative evaluation. [facility] Family History Family History Father Acute myocardial infarction Social History Social History (System 10/10/23 @ 07:10 by Mercedez Marrufo) Smoking status: Never smoker Second hand tobacco smoke exposure: No Alcohol intake: current Substance use: never Other substance usage details: on occa Last use: unsure Do You Feel Safe in your Home?: Yes Lack of Transportation: No Lack of Food: Never True Current Housing: I Have Housing Concerned About Future Housing: No Difficulty Paying Gas/Electric Bills: No Difficulty Paying for Meds: No Currently Unemployed: No Education: High School Diploma/GED Difficulty w/ Childcare or Family Care: No Spiritual care concerns: No Anes - Eval Final PreProcedure Day of Procedure 01/26/24 11:30 Patient weight: morbidly obese ASA classification: III Anesthetic plan: proceed Anesthesia type and monitoring: regional epidural and standard monitoring Results Review: All pre-operative results and documents have been reviewed as part of the pre-operative evaluation. Informed Consent: The patient's anesthetic plan and its attendant risks and benefits were discussed with the patient/family/POA. Questions were solicited and answers provided to the satisfaction of the patient/family/POA.
--- NOTE | 2024-01-26 23:10 | PM.OBPRVD ---
OB - Vaginal Delivery Note Procedure Delivery date: 01/26/24 Events: Other (40 6/7 wks) Induction method: AROM and Per Pitocin Protocol Delivery monitor: External FHT and Internal Uterine Route of delivery: Episiotomy description: None Laceration Description: Perineal - 2nd Degree Delivery repair: vicryl (3-0) Specimen: No Quantitative Blood Loss (ml): 150 Anesthesia type: Epidural Disposition: Floor Complications: No immediate complications [place] Baby Date of : 01/26/24 Weeks of gestation at delivery: 40 (40 6/7) Infant gender: Male presentation: vertex position: Right Occiput Anterior Placenta delivery description: Spontaneous Cord Vessel Description: 3 Vessels and Delayed Cord Clamping score one minute: 7 score five minutes: 9
[2024-01-26] MEDS: OXYTOCIN 30 UNITS/NS 500 ML 30 UNITS/500 ML BAG 125 UNITS IV CONT (23:20)
[2024-01-27] VITALS (11 sets, daily range): BP systolic 105–127; BP diastolic 59–75; PULSE 68–101; RESP 16–18; TEMP 36.1–37.1; O2SAT 96–100
[2024-01-27] MEDS: BENZOCAINE 20% AER SPR (*SP) 56 GM CAN 1 SPRAY TOPICAL (01:10)
[2024-01-27] MEDS: WITCH HAZEL 40 PADS 1 PAD TOPICAL (01:12)
[2024-01-27] MEDS: LORATADINE 10 MG TABLET (01:13)
--- NOTE | 2024-01-27 03:20 | PC.NURSE ---
Patient is upon arrival to unit. Will do assessment on baby and mother when she is finished.
--- NOTE | 2024-01-27 03:40 | OBPPTRN ---
Patient transferred to post room #291 via ( wheelchair ). Support person present. Oriented to unit, room, information board, rooming in, admission packet and security measures. Patient verbalizes understanding.
[2024-01-27 05:22] LABS: Hematocrit 31.9 % (37.0-47.0); Hemoglobin 9.8 g/dL (12.0-15.0)
--- NOTE | 2024-01-27 08:39 | PM.OBPNVD ---
OB - PN: Subj Subjective Date/time seen: 01/27/24 08:39 Patient comments: no complaints and pain well controlled baby status: doing well OB - PN: Obj Data Labs 01/27/24 05:04 Labs: Laboratory Results - last 24 hr 01/27/24 05:04 Hgb 9.8 L Hct 31.9 L OB - PN A/P Plan day: 1 Plan: routine care Time Spent With Patient Time: Total time spent is greater than 50% in coordination of care (as documented) at patient's floor/unit and/or counseling patient: Exam : Bimanual exam- vagina & uterus: other (Uterus firm, nt @U)
[2024-01-27] MEDS: POLYSACCHARIDE IRON COMPLEX 150 MG CAPSULE PO ×2 (08:54→15:55)
[2024-01-27] MEDS: IBUPROFEN 600 MG TABLET PO ×3 (08:55→20:24)
[2024-01-27] MEDS: DOCUSATE SODIUM 100 MG CAPSULE PO ×2 (08:55→15:55)
[2024-01-27] MEDS: MULTIVIT/MIN/PREN/FOL AC/IRON TABLET 1 TAB PO (08:55)
[2024-01-27] MEDS: LANOLIN (LANSINOH) 7.5 GM CREAM 1 APPLIC TOPICAL (08:56)
--- NOTE | 2024-01-27 15:52 | WPDANLDPN2 ---
Anes-Prog Note L&D Date/Time: 01/27/24 15:52 Comfortable throughout: labor and delivery Neuraxial method: epidural Epidural/Spinal procedure site: clean & non-tender Neuro status: Neuro function grossly intact. Cardiovascular status: normal Respiratory status: normal Airway patency: baseline Mental status: baseline Post-Op hydration status: normal Vital Signs: Last Vital Signs Temp 97.5 F L 01/27/24 12:00 Pulse 68 01/27/24 12:00 Resp 18 01/27/24 12:00 BP 117/75 01/27/24 12:00 Pulse Ox 98 01/27/24 12:00 O2 Del Method Room Air 01/27/24 03:15 Pain score (VAS): 0 I/O: Intake & Output 01/26/24 01/27/24 01/27/24 23:59 07:59 15:59 Intake Total 772.9 0 480 Balance 772.9 0 480 Post-procedural complaints: none Patient feedback: Patient satisfied with anesthetic care.
--- NOTE | 2024-01-27 18:06 | PC.NURSE ---
Patient viewed the discharge video Mother & Baby Care, The First Two Weeks . Patient was given the opportunity and encouraged to ask questions. Patient verbalized understanding of information shared and has been given the mother/baby guide for home reference.
[2024-01-27] MEDS: ACETAMINOPHEN 325 MG TABLET 650 MG PO (20:25)
[2024-01-28] MEDS: IBUPROFEN 600 MG TABLET PO (03:55)
[2024-01-28] MEDS: ACETAMINOPHEN 325 MG TABLET 650 MG PO (03:56)
--- NOTE | 2024-01-28 09:15 | PM.OBPNVD ---
OB - PN: Subj Subjective Date/time seen: 01/28/24 09:15 Patient comments: no complaints and pain well controlled baby status: doing well and nursing well OB - PN: Obj Data Labs 01/27/24 05:04 OB - PN A/P Plan day: 2 Plan: routine care, discharge home, follow up 6 weeks (for exam) and other (3 wks for Nexplanon) Time Spent With Patient Time: Total time spent is greater than 50% in coordination of care (as documented) at patient's floor/unit and/or counseling patient: Exam : Bimanual exam- vagina & uterus: other (Uterus firm, nt @U)
--- NOTE | 2024-01-28 09:16 | PM.OBDSVD ---
DS: Admitting Diagnosis Discharge Date 01/28/24 Admitting Diagnosis IUP 40 6/7 wks for MIL DS: Discharge Diagnosis Discharge Diagnosis (1) (normal spontaneous vaginal delivery): Code(s): O80 - Encounter for full-term uncomplicated delivery Status: Acute OB - DS: Summary OB Procedures : Ultrasound OB Procedures Intrapartum: Spontaneous Vag Delivery OB Procedures: : None Peripartum Data Infant Delivery Method: Natural Vaginal Laceration Description: Perineal - 2nd Degree Episiotomy description: None complications: none Status at Discharge Functional status at discharge: independent ambulation Overall status at discharge: patient is progressing back to baseline Time Spent with Patient Time attestation: Total time spent providing and/or coordinating discharge services: Discharge Plan Discharge Attending physician on discharge: Chiquita Avila Discharging Clinician: Chiquita Avila Anticipated Discharge Date/Time: 01/28/24 23:12 Patient Disposition: Home, Self-Care Activity: may shower and pelvic rest Diet: regular Patient Instructions: Antibiotic Form Stand Alone Forms: General Discharge Information Follow-up/Referrals: Chiquita Avila MD [Physician] - 6 Weeks (Call for Nexplanon to be placed at 3 wks) Discharge Medications: Continued Classic 28 mg iron- 800 mcg Tablet 1 tablet PO DAILY ergocalciferol (vitamin D2) 1,250 mcg (50,000 unit) capsule 1,250 mcg PO WEEKLY ferrous sulfate 325 mg (65 mg iron) Tablet 350 mg PO DAILY Date of admission: 01/26/24 04:56 Primary Care Provider: UNKNOWN,DOCTOR Admitting Provider: Chiquita Avila Attending physician on admission: Chiquita Avila Condition: Stable
--- NOTE | 2024-01-28 09:24 | PC.NURSE ---
0900 Patient eating breakfast. Introductions were made. Mother states she would like assistance and will call with next attempt to feed baby today. Reported to the Primary RN.
[2024-01-28] MEDS: WITCH HAZEL 40 PADS 1 PAD TOPICAL (09:46)
[2024-01-28] MEDS: DOCUSATE SODIUM 100 MG CAPSULE PO (09:46)
[2024-01-28] MEDS: POLYSACCHARIDE IRON COMPLEX 150 MG CAPSULE PO (09:46)
[2024-01-28] MEDS: BENZOCAINE 20% AER SPR (*SP) 56 GM CAN 1 SPRAY TOPICAL (09:46)
[2024-01-28] MEDS: MULTIVIT/MIN/PREN/FOL AC/IRON TABLET 1 TAB PO (09:46)
[2024-01-28 09:50] VITALS: BP 110/56; PULSE 83; RESP 16; TEMP 36.6
[2024-01-28 14:07] LABS: Rapid Plasma Reagin Non-Reactive (NonReactive)
== END 2024-01-28 10:51 | disposition home or self-care (01) | DRG 560 ==
LOC: ANHLDR 23:12 → ANHOB2 01-27 01:48
PROVIDERS: Advanced Practice Midwife; Admitting Provider Obstetrics & Gynecology Gynecology; Visit Provider Obstetrics & Gynecology Gynecology
DX: O76 Abnormality in fetal heart rate and rhythm complicating labor and delivery (principal); O70.1 Second degree perineal laceration during delivery; O99.824 Streptococcus B carrier state complicating childbirth; Z3A.40 40 weeks gestation of pregnancy; Z37.0 Single live birth
CPT/HCPCS: 36415; 85014; 85018; 85025; 86592; 86703; 86850; 86900; 86901; A9270; G0432; J0290; J2590; J2795; J7120

== ENCOUNTER 2024-05-27 16:02 | Outpatient (CLI) | payer OTHER, SELFPAY ==
--- NOTE | ~2024-05-27 | US_ITS ---
EXAM: PELVIC ULTRASOUND HISTORY: Check placement of intrauterine device. 2 para 2 COMPARISON: None. FINDINGS: UTERUS: 7.8 x 3.5 x 4.9 cm. The uterus is anteverted and anteflexed. Intrauterine device in good position, identified in transverse view within the fundus and in long vie w within the endometrial canal. RIGHT OVARY: The right ovary is unremarkable in echogenicity and size measuring 4.0 x 1.7 x 2.2 cm. Arterial and venous flow are identified. LEFT OVARY: The left ovary is unremarkable in echogenicity and size measuring 2.8 x 1.7 x 2.1cm Both arterial and venous flow are identified. No free fluid is identified within the pelvis. IMPRESSION: Intrauterine device in good position, as detailed above. Reviewed, dictated and finalized at location A.
== END 2024-05-27 16:03 | disposition home or self-care (01) ==
LOC: ANHIMG 16:05
PROVIDERS: Visit Provider Advanced Practice Midwife
DX: T83.32XA Displacement of intrauterine contraceptive device, initial encounter (principal)
CPT/HCPCS: 76830; 76856